=== PATIENT | female | born 1995 | race Native Hawaiian/Other Pacific Islander ===

== ENCOUNTER 2024-01-27 14:18 | Emergency (ER) | payer OTHER ==
[~2024-01-27] VITALS: Ht 154.9 cm; Wt 105.3 kg
[2024-01-27 14:33] VITALS: BP 124/78; PULSE 90; RESP 18; TEMP 97.9; O2SAT 94
[2024-01-27] MEDS: IBUPROFEN 600 MG TAB PO ONE (16:27)
[2024-01-27] MEDS ORDERED: METH-1681 PO (16:31)
[2024-01-27] MEDS ORDERED: IBUP-2213 PO (16:31)
[2024-01-27] MEDS ORDERED: LID5T TP (16:31)
[2024-01-27 16:39] VITALS: BP 124/78; PULSE 90; RESP 18; TEMP 97.9; O2SAT 94
== END 2024-01-27 16:38 | disposition home or self-care (01) ==
LOC: MED 14:18
DX: S39.012A Strain of muscle, fascia and tendon of lower back, initial encounter (principal); Z79.1 Long term (current) use of non-steroidal anti-inflammatories (NSAID); Z79.899 Other long term (current) drug therapy; V43.52XA Car driver injured in collision with other type car in traffic accident, initial encounter; Y93.89 Activity, other specified; Y92.488 Other paved roadways as the place of occurrence of the external cause; Y99.8 Other external cause status
CPT/HCPCS: 81025; 99282